=== PATIENT | male | born 1975 | race African-American/Black ===

== ENCOUNTER 2018-03-09 15:27 | Emergency (ER) | payer OTHER, SELFPAY ==
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
== END 2018-03-09 16:47 | disposition home or self-care (01) ==
LOC: NAV ERS 15:27
DX: S16.1XXA Strain of muscle, fascia and tendon at neck level, initial encounter (principal); V44.5XXA Car driver injured in collision with heavy transport vehicle or bus in traffic accident, initial encounter
CPT/HCPCS: 72125